=== PATIENT | male | born 2000 | race Caucasian/White ===

== ENCOUNTER → 2020-12-21 | Outpatient (CLI) | payer OTHER | LOC: KOH-I 08:30 | DX: R10.9 Unspecified abdominal pain (principal); N20.0 Calculus of kidney | CPT/HCPCS: 74176 ==

== ENCOUNTER → 2021-03-15 | Outpatient (CLI) | payer OTHER | LOC: RAD 07:24 | DX: R13.10 Dysphagia, unspecified (principal); K21.9 Gastro-esophageal reflux disease without esophagitis; K22.4 Dyskinesia of esophagus | CPT/HCPCS: 74220 ==

== ENCOUNTER → 2021-09-19 | Outpatient (CLI) | payer OTHER | LOC: EMI 08:23 | DX: S83.511D Sprain of anterior cruciate ligament of right knee, subsequent encounter (principal); S83.411A Sprain of medial collateral ligament of right knee, initial encounter; S83.241A Other tear of medial meniscus, current injury, right knee, initial encounter | CPT/HCPCS: 73721 ==